=== PATIENT | male | born 1975 | race Asian ===

== ENCOUNTER 2018-02-18 21:32 | Emergency (ER) | payer OTHER ==
[~2018-02-18] VITALS: Ht 177.8 cm; Wt 84.4 kg
[2018-02-18 22:05] VITALS: Ht 177.8 cm; Wt 84.4 kg
[2018-02-18 23:37] VITALS: BP 141/105
== END 2018-02-18 23:37 | disposition home or self-care (01) ==
LOC: ED 21:32
DX: S61.052A Open bite of left thumb without damage to nail, initial encounter (principal); W54.0XXA Bitten by dog, initial encounter; Y93.89 Activity, other specified; Y92.89 Other specified places as the place of occurrence of the external cause; Y99.8 Other external cause status
CPT/HCPCS: 90715